=== PATIENT | male | born 1955 | race Caucasian/White ===

== ENCOUNTER 2017-03-05 19:48 | Inpatient (IN) | payer MEDICARE ==
[~2017-03-05 19:48] MED LIST: COMPAZINE10 M PO; COUMADIN5 MG PO; COUMADIN7.5 MG PO; CRESTOR10 MG PO; EQL FISH OIL 1,1 CA1 PO; LISINOPRIL2.5 MG PO; NORTRIPTYLINE H50 MG PO; NOVOLOG100 UNITS/ SC; PLAVIX75 MG PO; STOOL SOFTENER50 M1 PO
[2017-03-05] MEDS ORDERED: CARDIZEM30 M1 PO (20:11)
[2017-03-05] MEDS ORDERED: FAMOTIDINE10 M1 PO (20:11)
[2017-03-05] MEDS ORDERED: KELP PO (20:12)
[2017-03-05] MEDS ORDERED: FENUGREEK PO (20:12)
[2017-03-05] MEDS ORDERED: FLOMAX0.4 M1 PO (20:13)
[2017-03-05 20:46] LABS: URINE LEUKOCYTE ESTERASE NEGATIVE (NEG); URINE PROTEIN MODERATE (NEG)
[2017-03-05 20:47] LABS: URINE APPEARANCE CLEAR; URINE BILIRUBIN NEGATIVE (NEG); URINE BLOOD NEGATIVE (NEG); URINE COLOR YELLOW; URINE GLUCOSE (UA) MODERATE (NEG); URINE KETONE NEGATIVE (NEG); URINE NITRITE NEGATIVE (NEG)
[2017-03-05 20:56] LABS: BASO % 0.7 % (0-2); BASO ABSOLUTE COUNT 0.1 tho/cmm (0.0-0.2); EOSINOPHIL ABSOLUTE COUNT 0.1 tho/cmm (0.0-0.7); HCT-HEMATOCRIT 50.6 % (36.0-53.5); HGB-HEMOGLOBIN 17.5 gm/dl (13.5-17.0); IMMATURE GRANULOCYTES ABSOLUTE 0.04 tho/cmm (0-0.03); IMMATURE GRANULOCYTES PERCENT 0.3 % (0-0.3); LYMPH % 13.2 % (20-45); LYMPH ABSOLUTE COUNT 1.6 tho/cmm (0.8-4.5); MCH (MEAN CORPUSCULAR HGB) 29.7 pg (28.0-32.0); MCHC MEAN CORPUSCULAR HGB CONC 34.6 % (32.0-36.0); MCV (MEAN CELL VOLUME) 85.9 fl (82.0-96.0); MEAN PLATELET VOLUME 10.6 cmc (9.4-12.4); MONO % 6.2 % (0-12); MONOCYTE ABSOLUTE COUNT 0.8 tho/cmm (0.0-1.2); NEUTROPHIL ABSOLUTE COUNT 9.5 tho/cmm (1.6-8.0); NEUTROPHIL-AUTOMATED 9.5 tho/cmm (1.6-8.0); NEUTROPHILS % 78.6 % (40-80); PLATELET COUNT 215 tho/cmm (150-450); RED BLOOD COUNT 5.89 mil/cmm (4.40-5.70); RED CELL DISTRIBUTION WIDTH 13.3 % (12.4-16.4); WHITE BLOOD COUNT 12.1 tho/cmm (4.0-10.0)
[2017-03-05 20:59] LABS: INR 0.9 INR (0.9-1.1); PROTHROMBIN TIME 10.9 SECONDS (9.0-13.6)
[2017-03-05 21:10] LABS: ALB/GLOB RATIO 0.8 (0.8-2.0); ALBUMIN 3.5 g/dl (3.5-5.0); ALKALINE PHOSPHATASE 118 U/L (33-138); ALT/SGPT 27 U/L (12-78); ANION GAP 14 mmol/L (0-20); AST/SGOT 17 U/L (10-40); BILIRUBIN,TOTAL 0.4 mg/dl (0.0-1.5); BLOOD UREA NITROGEN 10 mg/dl (6-24); CALCIUM 8.7 mg/dl (8.5-10.5); CARBON DIOXIDE-VENOUS 24 mmol/L (22-32); CHLORIDE 102 mmol/l (96-110); GLUCOSE 240 mg/dL (70-110); POTASSIUM 3.7 mmol/L (3.7-5.1); SODIUM 136 mmol/L (135-145); eGFR VALUE FOR BLACK 84 mL/Min
[2017-03-06 02:47] LABS: HGB-HEMOGLOBIN 18.8 gm/dl (13.5-17.0); MCV (MEAN CELL VOLUME) 85.9 fl (82.0-96.0); RED CELL DISTRIBUTION WIDTH 13.4 % (12.4-16.4)
[2017-03-06 06:32] LABS: BASO % 0.3 % (0-2); BASO ABSOLUTE COUNT 0.1 tho/cmm (0.0-0.2); EOS % 0.9 % (0-7); EOSINOPHIL ABSOLUTE COUNT 0.1 tho/cmm (0.0-0.7); HCT-HEMATOCRIT 55.1 % (36.0-53.5); IMMATURE GRANULOCYTES ABSOLUTE 0.04 tho/cmm (0-0.03); IMMATURE GRANULOCYTES PERCENT 0.3 % (0-0.3); LYMPH % 14.5 % (20-45); LYMPH ABSOLUTE COUNT 2.2 tho/cmm (0.8-4.5); MCH (MEAN CORPUSCULAR HGB) 29.9 pg (28.0-32.0); MCHC MEAN CORPUSCULAR HGB CONC 34.5 % (32.0-36.0); MCV (MEAN CELL VOLUME) 86.6 fl (82.0-96.0); MEAN PLATELET VOLUME 10.8 cmc (9.4-12.4); MONO % 8.2 % (0-12); MONOCYTE ABSOLUTE COUNT 1.2 tho/cmm (0.0-1.2); NEUTROPHIL ABSOLUTE COUNT 11.5 tho/cmm (1.6-8.0); NEUTROPHIL-AUTOMATED 11.5 tho/cmm (1.6-8.0); NEUTROPHILS % 75.8 % (40-80); PLATELET COUNT 274 tho/cmm (150-450); RED BLOOD COUNT 6.36 mil/cmm (4.40-5.70); RED CELL DISTRIBUTION WIDTH 13.6 % (12.4-16.4); WHITE BLOOD COUNT 15.2 tho/cmm (4.0-10.0)
[2017-03-06 06:56] LABS: BLOOD UREA NITROGEN 9 mg/dl (6-24); CALCIUM 8.8 mg/dl (8.5-10.5); CARBON DIOXIDE-VENOUS 26 mmol/L (22-32); CHLORIDE 103 mmol/l (96-110); CREATININE 0.98 mg/dl (0.60-1.30); SODIUM 140 mmol/L (135-145); eGFR VALUE FOR BLACK >90 mL/Min
[2017-03-06 07:08] LABS: ANION GAP 15 mmol/L (0-20); GLUCOSE 103 mg/dL (70-110); POTASSIUM 3.7 mmol/L (3.7-5.1)
[2017-03-06] MEDS ORDERED: LANTUS100 UNITS/ SC (12:14)
[2017-03-07 06:09] LABS: BASO % 0.4 % (0-2); BASO ABSOLUTE COUNT 0.1 tho/cmm (0.0-0.2); EOS % 0.8 % (0-7); EOSINOPHIL ABSOLUTE COUNT 0.1 tho/cmm (0.0-0.7); HCT-HEMATOCRIT 53.9 % (36.0-53.5); IMMATURE GRANULOCYTES ABSOLUTE 0.05 tho/cmm (0-0.03); IMMATURE GRANULOCYTES PERCENT 0.3 % (0-0.3); LYMPH % 12.9 % (20-45); MCH (MEAN CORPUSCULAR HGB) 29.4 pg (28.0-32.0); MCHC MEAN CORPUSCULAR HGB CONC 33.4 % (32.0-36.0); MCV (MEAN CELL VOLUME) 88.1 fl (82.0-96.0); MEAN PLATELET VOLUME 10.7 cmc (9.4-12.4); MONO % 9.6 % (0-12); MONOCYTE ABSOLUTE COUNT 1.5 tho/cmm (0.0-1.2); PLATELET COUNT 257 tho/cmm (150-450); RED BLOOD COUNT 6.12 mil/cmm (4.40-5.70); RED CELL DISTRIBUTION WIDTH 13.7 % (12.4-16.4); WHITE BLOOD COUNT 15.8 tho/cmm (4.0-10.0)
[2017-03-07 06:19] LABS: ANION GAP 12 mmol/L (0-20); BLOOD UREA NITROGEN 8 mg/dl (6-24); CALCIUM 8.4 mg/dl (8.5-10.5); CARBON DIOXIDE-VENOUS 29 mmol/L (22-32); CHLORIDE 102 mmol/l (96-110); POTASSIUM 3.2 mmol/L (3.7-5.1); SODIUM 140 mmol/L (135-145); eGFR VALUE FOR BLACK 84 mL/Min
[2017-03-07 06:24] LABS: GLUCOSE 159 mg/dL (70-110)
[2017-03-07] MEDS ORDERED: CARDIZEM30 M1 PO (11:43)
[2017-03-07] MEDS ORDERED: LISINOPRIL2.5 M1 PO (11:45)
--- NOTE | 2017-03-07 16:42 | NUR ---
PATIENT TOLERATED SOFT DIET. NO ABDOMINAL PAIN OR NAUSEA. PATIENT OK TO DC IF TOLERATED DIET PER IMS.
== END 2017-03-07 14:00 | DRG 395 ==
LOC: EDMED 19:48 → EMR2 22:34 → PCUA 23:55
PROVIDERS: Emergency Medicine; Family Medicine; Hospitalist; ADMIT Internal Medicine
PROC: 0DBM8ZX Excision of Descending Colon, Via Natural or Artificial Opening Endoscopic, Diagnostic (ICD-10-PCS; principal; 2017-03-07)
DX: K55.9 Vascular disorder of intestine, unspecified (principal); E11.51 Type 2 diabetes mellitus with diabetic peripheral angiopathy without gangrene; E11.65 Type 2 diabetes mellitus with hyperglycemia; K64.8 Other hemorrhoids; R91.1 Solitary pulmonary nodule; D45 Polycythemia vera; R80.9 Proteinuria, unspecified; I10 Essential (primary) hypertension; I69.393 Ataxia following cerebral infarction; Z79.4 Long term (current) use of insulin; N40.0 Benign prostatic hyperplasia without lower urinary tract symptoms; K57.30 Diverticulosis of large intestine without perforation or abscess without bleeding; R13.10 Dysphagia, unspecified
CPT/HCPCS: C9113; G0500; J2250; J2405; J3010; J3480; J7030; Q9967